=== PATIENT | male | born 1995 | race Two or more races ===

== ENCOUNTER 2024-07-18 11:56 | Emergency (ER) | payer OTHER ==
[~2024-07-18] VITALS: Ht 167.6 cm; Wt 70.3 kg
[2024-07-18] MEDS ORDERED: BUTALB/ACETAMINOPHEN/CAFFEINE 1 TAB TABLET PO ONE (13:30)
[2024-07-18 13:46] LABS: HEMATOCRIT 44.1 % (39.0-48.0); HEMOGLOBIN 14.9 g/dL (13-16.00); MEAN CELL VOLUME 89.6 fL (80.0-100.00); MEAN CORPUSCULAR HEMOGLOBIN 30.3 pg (27.00-32.0); MEAN CORPUSCULAR HGB CONC 33.8 g/dl (32.0-36.0); PLATELET COUNT 225 K/uL (150-450); RED BLOOD COUNT 4.93 M/uL (4.00-6.00)
[2024-07-18 14:36] LABS: ALBUMIN 3.9 gm/dL (3.4-5.0); BILIRUBIN TOTAL 0.64 mg/dL (0.3-1.2); CALCIUM 8.9 mg/dL (8.5-10.1); CREATININE SERUM 0.92 mg/dL (0.70-1.30); GFR 96.6; GLOBULINA 3.1 G/DL (2.4-3.5); POTASSIUM 3.94 mEq/L (3.5-5.1)
[2024-07-18] MEDS ORDERED: DIPHENHYDRAMINE HCL 50 MG/ML VIAL 1ML IV ONE (15:15)
[2024-07-18] MEDS ORDERED: METHYLPREDNISOLONE SOD SUCC 40 MG VIAL IV ONE (15:15)
[2024-07-18] MEDS ORDERED: BUTALB-ACETAMI1 EACH PO (17:00)
== END 2024-07-18 17:58 | disposition home or self-care (01) ==
LOC: ER 11:58
PROVIDERS: General Practice
DX: R51.9 Headache, unspecified (principal); Z91.013 Allergy to seafood; H54.3 Unqualified visual loss, both eyes; Z20.822 Contact with and (suspected) exposure to COVID-19